=== PATIENT | female | born 1995 | race Caucasian/White ===

== ENCOUNTER → 2019-02-05 | Outpatient (CLI) | payer OTHER, SELFPAY ==
[2019-02-05 14:40] VITALS: BMI 21.4
[2019-02-08 15:53] LABS: HPV Reflexed? NOT INDICATED
== END | disposition home or self-care (01) ==
PROVIDERS: Family Provider Student in an Organized Health Care Education/Training Program; PCP Student in an Organized Health Care Education/Training Program; Referring Provider Obstetrics & Gynecology; Visit Provider Obstetrics & Gynecology
DX: Z12.4 Encounter for screening for malignant neoplasm of cervix (principal)
CPT/HCPCS: 87624; 88175; G0145

== ENCOUNTER → 2020-11-06 11:59 | Outpatient (CLI) | payer OTHER, SELFPAY ==
[2020-11-06 10:34] VITALS: BMI 23.7
[2020-11-06 14:58] LABS: Prolactin 10.5 ng/mL; Thyroid Stim Hormone (TSH) 1.79 uIU/mL (0.358-3.74)
== END ==
LOC: PAVLAB 12:02 → LAB 12:09
PROVIDERS: PCP Student in an Organized Health Care Education/Training Program; Referring Provider Obstetrics & Gynecology; Visit Provider Obstetrics & Gynecology
DX: N92.6 Irregular menstruation, unspecified (principal)
CPT/HCPCS: 36415; 84146; 84443